=== PATIENT | female | born 1995 | race Caucasian/White ===

== ENCOUNTER 2024-03-07 13:56 | Emergency (ER) | payer OTHER ==
[2024-03-07 14:17] VITALS: BP 106/71; PULSE 89; RESP 17; TEMP 98.2; BMI 44.2
[2024-03-07 16:12] LABS: EPI CELLS 11 /uL (0-25.1); HYALINE CASTS 1 /uL (0-3.1); PH,URINE 5.5 (5.0-8.0); URINE APPEARANCE CLEAR; URINE BACTERIA 218 /uL (0-1359); URINE BILIRUBIN NEGATIVE (NEGATIVE); URINE COLOR YELLOW; URINE GLUCOSE (UA) NEGATIVE (NEGATIVE); URINE KETONE NEGATIVE (NEGATIVE); URINE LEUK ESTERASE 1+ (NEGATIVE); URINE NITRITE NEGATIVE (NEGATIVE); URINE PROTEIN NEGATIVE (NEGATIVE); URINE RBC 8 /uL (0-23.9); URINE UROBILINOGEN 0.2 mg/dL (0.2-1.0); URINE WBC 19 /uL (0-25.8)
[2024-03-07 16:29] LABS: YEAST NOT PRESENT (NEGATIVE)
== END 2024-03-07 19:23 | disposition home or self-care (01) ==
LOC: JER 13:56
DX: O20.0 Threatened abortion (principal)
CPT/HCPCS: 36415; 76801-TC; 81003; 84702; 87086; 99284-25